=== PATIENT | male | born 1975 | race Caucasian/White ===

== ENCOUNTER → 2023-05-31 10:24 | Outpatient (REF) | payer OTHER, SELFPAY | LOC: HWRAD 10:24 | PROVIDERS: ATTENDING PHYSICIAN Nurse Practitioner Family | DX: R07.9 Chest pain, unspecified (principal); M25.561 Pain in right knee | CPT/HCPCS: 73564 ==

== ENCOUNTER → 2023-09-01 07:25 | Outpatient (REF) | payer OTHER, SELFPAY | LOC: HWRAD 07:25 | PROVIDERS: ATTENDING PHYSICIAN Internal Medicine | DX: E78.2 Mixed hyperlipidemia (principal) | CPT/HCPCS: 76700 ==

== ENCOUNTER → 2024-11-28 10:59 | Outpatient (REF) | payer OTHER, SELFPAY | LOC: HWRAD 10:59 | PROVIDERS: ATTENDING PHYSICIAN Internal Medicine | DX: R20.2 Paresthesia of skin (principal); R20.0 Anesthesia of skin | CPT/HCPCS: 72050 ==

== ENCOUNTER → 2024-12-17 06:43 | Outpatient (REF) | payer OTHER, SELFPAY | LOC: PAVMRI 06:43 | PROVIDERS: ATTENDING PHYSICIAN Internal Medicine | DX: M54.12 Radiculopathy, cervical region (principal) | CPT/HCPCS: 72141 ==